=== PATIENT | male | born 1960 | race Caucasian/White ===

== ENCOUNTER → 2017-01-09 | Outpatient (CLI) | payer BC ==
--- NOTE | 2017-01-11 08:06 | ECHOCARDIOGRAPHY REPORT ---
PROCEDURE PHYSICIAN: BELINDA ESPINAL DATE OF PROCEDURE: 01/09/2017 TWO DIMENSIONAL ECHOCARDIOGRAM REPORT PRIMARY PHYSICIAN: OTHER PHYSICIAN: REFERRING PHYSICIAN: Dr. Julia Howard ORDERING PHYSICIAN: INDICATION FOR THE PROCEDURE: Pulmonary hypertension. MEASUREMENTS DERIVED VALUES LV DIAMETER (LAX) NORMALS NORMALS Diastolic 5.1 (3.6-5.2) Eject. Fract. 60% (60%+/-6%) Systolic (2.3-3.9) Diastolic Vol. % Shortening (0.22-0.42) Systolic Vol. Aortic Root IVS THICKNESS Diastolic 1.2 (0.6-1.1) LVPW THICKNESS Diastolic 1.2 (0.6-1.1) LA DIAMETER Systolic 4.1 (2.1-3.7) FINDINGS: 1. Technical quality is good. 2. The left ventricle is normal in size with mild left ventricular hypertrophy noted diffusely. Systolic function appeared to be normal. Estimated ejection fraction 60%. Diastolic dysfunction is suggested by Doppler. 3. The left atrium is in the upper normal limit in size. No clot or thrombus were seen within the left atrium. 4. The right atrium and right ventricle are normal in size. No clot or thrombus were seen within the right side. 5. Mitral valve is normal in morphology with mild mitral regurgitation noted by color Doppler flow. No mitral valve prolapse. No mitral valve stenosis. Doppler across the mitral valve showed equalization of E and A, which is suggestive of diastolic dysfunction. 6. Aortic valve is trileaflet with normal opening and closing pattern. No significant aortic stenosis or regurgitation was noted. 7. Tricuspid valve is normal in morphology with mild tricuspid regurgitation noted by color Doppler flow. Doppler across tricuspid valve estimated pulmonary artery pressure of 22+ right atrial pressure. 8. Pulmonic valve is functioning normally. 9. No pericardial effusion. IN CONCLUSION: 1. Mild left ventricular hypertrophy noted diffusely with normal systolic function. Estimated ejection fraction 60%. Diastolic dysfunction is suggested by Doppler. 2. Mild mitral and tricuspid regurgitation. 3. Estimated pulmonary artery pressure of 30 mmHg. Job ID: [id number] Dictated Date: 01/10/2017 15:49:28 [employer] Date: 01/11/2017 08:03:43 / mack
== END ==
LOC: CARD 12:53
PROVIDERS: ATTEND Family Medicine
DX: I27.2 Other secondary pulmonary hypertension (principal)
CPT/HCPCS: 93306

== ENCOUNTER 2018-03-08 16:19 | Outpatient (CLI) | payer BC | END 2018-03-08 16:38 | disposition home or self-care (01) | LOC: SLEEP 16:19 | PROVIDERS: ATTEND Internal Medicine | DX: G47.33 Obstructive sleep apnea (adult) (pediatric) (principal); R06.83 Snoring; I10 Essential (primary) hypertension ==

== ENCOUNTER → 2018-03-29 | Outpatient (CLI) | payer BC ==
--- NOTE | 2018-03-29 16:30 | Diagnostic Imaging Report ---
CLINICAL INDICATION: Patient had a colonoscopy this morning and is unable to release any air. Patient is in a lot of pain. EXAM: X-ray of the abdomen, upright views only. COMPARISON: None. FINDINGS: There are dilated loops of air- and fluid-filled colon seen from the cecum all the way to the distal descending colon. The most dilated portion of the colon measures 7.7 cm, and this involves the right colon. There appears to be minimal air overlying the rectosigmoid region. There is air-fluid level seen in the right colon and transverse colon region. There is no significant air-filled small bowel. There is no intra-abdominal free air. There are hypertrophic spurs seen throughout the spine and both hips. Sternotomy wires are seen. IMPRESSION: 1: There are dilated loops of colon seen from the distal descending colon to the cecum with a few air-fluid levels. There appears to be minimal air within the rectosigmoid region. These findings most likely represent post-procedure colonic ileus. Colonic obstruction is suspected to be less likely and would have been known from the colonoscopy evaluation. 2: There is no evidence of free air. Results of this report were discussed with Dr. Rodney Armendariz via the telephone on 03/29/2018 at 1620 hours. Dictated by: Dictated on workstation # [id number]
== END ==
LOC: RAD 15:56
PROVIDERS: ATTEND Internal Medicine Gastroenterology
DX: R10.9 Unspecified abdominal pain (principal)
CPT/HCPCS: 74018

== ENCOUNTER 2018-03-31 19:55 | Outpatient (CLI) | payer BC | END 2018-04-01 05:00 | disposition home or self-care (01) | LOC: SLEEP 19:55 | PROVIDERS: ATTEND Nurse Practitioner | DX: G47.33 Obstructive sleep apnea (adult) (pediatric) (principal) | CPT/HCPCS: 95811 ==

== ENCOUNTER 2019-02-10 21:00 | Observation (INO) | payer BC ==
[2019-02-10] VITALS (11 sets, daily range): BP systolic 102–140; BP diastolic 63–84
[~2019-02-10] VITALS: Ht 177.8 cm; Wt 145.1 kg
--- OUTSIDE RECORDS SUMMARY | 2019-02-10 21:05 | XMS REPORT ---
Author Author ERICA OREILLY Organization [facility] Address [address] [place] [address] Care Team Providers Care Paper Control Clerk Name Role Phone OREILLYERICA Samson Unavailable PROBLEMS Unknown Problems ALLERGIES No Known Allergies SOCIAL HISTORY Never Assessed PLAN OF CARE Activity Details Follow Up prn Reason: VITAL SIGNS Height 70 in 2016-12-24 Weight 314.4 lbs 2016-12-24 Temperature 97.8 degrees Fahrenheit 2016-12-24 Heart Rate 88 bpm 2016-12-24 Respiratory Rate 20 2016-12-24 BMI 45.11 kg/m2 2016-12-24 Blood pressure systolic 130 mmHg 2016-12-24 Blood pressure diastolic 82 mmHg 2016-12-24 MEDICATIONS Medication Instructions Dosage Frequency Start Date End Date Duration Status Tessalon Perles 100 mg Orally Three times a day 1 capsule as needed 8h Dec, Jan, 14 days Active Multi Vitamin Mens - Orally Once a day 1 tablet 24h Active Levothyroxine Sodium 25 MCG Orally Once a day 1 tablet on an empty stomach in the morning 24h Active ProAir HFA 108 (90 Base) MCG/ACT Inhalation every 4 hrs 2 puffs as needed 4h Dec, 30 days Active PredniSONE 20 mg Orally Once a day 4 tabs x 4 days, 3 tabs x 4 days, 2 tabs x 4 days, then 1 tab x 4 days. 24h Dec, Jan, 16 days Active RESULTS No Results PROCEDURES Procedure Date Ordered Result Body Site CHEST X-RAY Dec 24, 2016 IMMUNIZATIONS No Known Immunizations MEDICAL (GENERAL) HISTORY Type Description Date Surgical History open heart surgery...hole in valve 1975 Surgical History bilateral orthoscopic sx on knees Surgical History tonwsils and adenoids Hospitalization History post surgeries
[2019-02-10 21:15] LABS: BASOPHILS % (AUTO) 0 % (0-10); EOSINOPHILS # (AUTO) 0.3 10^3/uL (0.0-0.3); EOSINOPHILS % (AUTO) 3 % (0-10); HEMATOCRIT 43 % (40-54); HEMOGLOBIN 15.4 G/DL (13.3-17.7); LYMPHOCYTES # (AUTO) 3.8 X 10^3 (1.0-4.0); LYMPHOCYTES % (AUTO) 37 % (12-44); MEAN CORPUSCULAR HEMOGLOBIN 32 PG (25-34); MEAN CORPUSCULAR HGB CONC 36 G/DL (32-36); MEAN CORPUSCULAR VOLUME 89 FL (80-99); MEAN PLATELET VOLUME 10.5 FL (7.4-10.4); MONOCYTES # (AUTO) 0.9 X 10^3 (0.0-1.0); MONOCYTES % (AUTO) 9 % (0-12); NEUTROPHILS # (AUTO) 5.3 X 10^3 (1.8-7.8); NEUTROPHILS % (AUTO) 51 % (42-75); PLATELET COUNT 211 10^3/uL (130-400); RED CELL DISTRIBUTION WIDTH 13.4 % (10.0-14.5); WHITE BLOOD COUNT 10.4 10^3/uL (4.3-11.0)
[2019-02-10] MEDS ORDERED: ASPIRIN 81 MG CHEW (CHILDREN'S ASA) PO ONE (21:15)
--- NOTE | 2019-02-10 21:29 | ED Chest Pain ---
General Stated Complaint: CHEST PAIN Source: patient History of Present Illness Date Seen by Provider: Feb 10, 2019 Time Seen by Provider: 21:02 Initial Comments PT ARRIVES VIA POV FROM HOME C/O CHEST PAIN SINCE WAKING THIS AM, AND HAS BEEN CONSTANT ALL DAY TODAY STATES HE DID MOVE 2 COUCHES TODAY, BUT WAS ALREADY HAVING CHEST PAIN BEFORE THAT ACTIVITY STATES NOTHING WORSENS OR IMPROVES PAIN NO RADIATION OF PAIN PT STATES HE IS ALWAYS SHORT OF BREATH, BUT IS WORSE TODAY ALSO STATES HE HAS BEEN COUGHING MORE TODAY, AND HAS FELT HOT TODAY AND HAS BEEN SWEATING TODAY NO NAUSEA NO SWELLING IN LEGS/ FEET TODAY STATES HEART FELT LIKE IT WAS BEATING HARD STATES HE HAS HAD SOME MILDER OCCASIONAL CHEST PAIN BUT HAS NEVER SOUGHT CARE. PT DOES ADMIT TO ALCOHOL USE AND DID DRINK HEAVILY LAST PM NO HISTORY OF SMOKING BUT DOES CHEW TOBACCO PT STATES IN 1975 HE HAD OPEN HEART SURGERY "HAD A HOLE IN THE VALVE" AND "PATCHED IT" STATES HE HAS NOT SEEN A PCU RN SINCE THEN THINKS HE HAD A STRESS TEST MANY YEARS AGO THINKS HE HAD A CARDIAC CATH IN 1974 BEFORE HIS HEART SURGERY, BUT NONE SINCE DOES NOT THINK HE HAS HAD AN EKG IN YEARS PT THINKS HE IS TAKING A BLOOD THINNER, BUT THINKS HE JUST RECENTLY WAS STARTED ON IT, DOES NOT KNOW NAME OR WHY HE WAS PRESCRIBED IT. PCP: DR. RICKS Allergies and Home Medications Allergies Coded Allergies: No Known Drug Allergies (Unverified , 02/10/19) Review of Systems Review of Systems Constitutional: see HPI, diaphoresis; No dizziness EENTM: No Symptoms Reported Respiratory: See HPI, Cough, Shortness of Air, SOA With Exertion, SOA at Rest Cardiovascular: See HPI, Chest Pain; Denies Lightheadedness; Palpitations; Denies Syncope; Other (HAS HISTORY OF EDEMA, BUT NOT TODAY--TAKES DIURETIC ) Gastrointestinal: No Symptoms Reported; Denies Abdominal Pain, Denies Nausea, Denies Vomiting Genitourinary: No Symptoms Reported Musculoskeletal: no symptoms reported; No back pain Skin: no symptoms reported Psychiatric/Neurological: No Symptoms Reported Endocrine: No Symptoms Reported Hematologic/Lymphatic: No Symptoms Reported Past Gwcrhid-Tnrosf-Zspqep Hx Patient Social History Alcohol Use: Regular Use (HEAVY AT TIMES) Recreational Drug Use: No Smoking Status: Never a Smoker Type Used: Smokeless Tobacco (CHEWS DAILY) Past Medical History Surgeries: Yes ("OPEN HEART SURGERY FOR HOLE IN VALVE" IN 1975, PER PT 02/10/19 ; BILATERAL KNEE SCOPES; "JAW BONE SCRAPED: ) Adenoidectomy, Cardiac, Orthopedic, Tonsillectomy Respiratory: Yes Sleep Apnea Cardiac: Yes Chronic Edema/Swelling, Valvular Heart Disease Neurological: No Genitourinary: No Gastrointestinal: No Musculoskeletal: Yes (BILATERAL KNEE SCOPES) Arthritis Endocrine: Yes (OBESITY) Hypothyroidsim HEENT: No Cancer: No Psychosocial: No Integumentary: No Blood Disorders: No Physical Exam Vital Signs Capillary Refill : Height, Weight, BMI Height: '" Weight: lbs. oz. kg; BMI Method: General Appearance: Mild Distress (MILDLY DYSPNEIC), Obese HEENT: PERRL/EOMI Neck: Full Range of Motion, Normal Inspection, Non Tender, Supple; No Carotid Bruit, No JVD Respiratory: Normal Breath Sounds, Other (MILDLY DYSPNEIC ) Cardiovascular: Regular Rate, Rhythm (RATE 100), No JVD, Normal Peripheral Pulses, Systolic Murmur (FAINT), Other (TRACE EDEMA BILATERALLY WITH CHRONIC VENOUS STASIS CHANGES BILATERALLY) Gastrointestinal: Non Tender, Soft Extremity: Normal Range of Motion, Non Tender, No Calf Tenderness, Pedal Edema (TRACE BILATERALLY) Neurologic/Psychiatric: Alert, Oriented x3, No Motor/Sensory Deficits, Normal Mood/Affect, 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 Norm as Tested Skin: Normal Color, Warm/Dry; No Rash Progress/Results/Core Measures Results/Orders Lab Results Laboratory Tests Test 02/10/19 21:05 Range/Units White Blood Count 10.4 4.3-11.0 10^3/uL Red Blood Count 4.83 4.35-5.85 10^6/uL Hemoglobin 15.4 13.3-17.7 G/DL Hematocrit 43 40-54 % Mean Corpuscular Volume 89 80-99 FL Mean Corpuscular Hemoglobin 32 25-34 PG Mean Corpuscular Hemoglobin Concent 36 32-36 G/DL Red Cell Distribution Width 13.4 10.0-14.5 % Platelet Count 211 130-400 10^3/uL Mean Platelet Volume 10.5 H 7.4-10.4 FL Neutrophils (%) (Auto) 51 42-75 % Lymphocytes (%) (Auto) 37 12-44 % Monocytes (%) (Auto) 9 0-12 % Eosinophils (%) (Auto) 3 0-10 % Basophils (%) (Auto) 0 0-10 % Neutrophils # (Auto) 5.3 1.8-7.8 X 10^3 Lymphocytes # (Auto) 3.8 1.0-4.0 X 10^3 Monocytes # (Auto) 0.9 0.0-1.0 X 10^3 Eosinophils # (Auto) 0.3 0.0-0.3 10^3/uL Basophils # (Auto) 0.0 0.0-0.1 10^3/uL My Orders Orders - DOROTHY CORDOVA DO Cbc With Automated Diff (02/10/19 21:02) Magnesium (02/10/19 21:02) Chest 1 View, Ap/Pa Only (02/10/19 21:02) Ekg Tracing (02/10/19 21:02) Cardiac Profile 1 (02/10/19 21:02) Comprehensive Metabolic Panel (02/10/19 21:02) Myoglobin Serum (02/10/19 21:02) Protime With Inr (02/10/19 21:02) Partial Thromboplastin Time (02/10/19 21:02) O2 (02/10/19 21:02) Monitor-Rhythm Ecg Trace Only (02/10/19 21:02) Lipid Panel (02/11/19 06:00) Saline Lock/Iv-Start (02/10/19 21:02) Creatine Kinase (02/10/19 21:02) Creatine Kinase Mb (02/10/19 21:02) Lipase (02/10/19 21:02) Amylase (02/10/19 21:02) BNP (02/10/19 21:02) Aspirin Chewable Tablet (Baby Aspirin Ch (02/10/19 21:15) Nitroglycerin 0.4 Mg Btl 25's (Nitrostat (02/10/19 21:15) Initial ECG Impression Date: Feb 10, 2019 Initial ECG Impression Time: 21:04 Initial ECG Rate: 100 Initial ECG Rhythm: Normal Sinus Initial ECG Comparisson: No Previous ECG Available Departure Impression Primary Impression: Chest pain Departure-Patient Inst. Referrals: DENNIS RICKS DO (PCP/Family) Primary Care Physician DOROTHY CORDOVA DO Feb 10, 2019 21:29
[2019-02-10] MEDS ORDERED: PANTOPRAZOLE 40 MG (PROTONIX) VIAL IV ONE (21:30)
[2019-02-10] MEDS: NITROGLYCERIN 0.4 MG SL TABS BTL 25'S SL PRN ×3 (21:31→21:41)
[2019-02-10 21:34] LABS: INR 0.9 (0.8-1.4); PROTHROMBIN TIME PATIENT 12.8 SEC (12.2-14.7)
[2019-02-10 21:36] LABS: ALANINE AMINOTRANSFERASE 49 U/L (0-55); ALBUMIN 4.3 GM/DL (3.2-4.5); ALKALINE PHOSPHATASE 75 U/L (40-136); AMYLASE 25 U/L (25-125); BILIRUBIN,TOTAL 0.4 MG/DL (0.1-1.0); BUN/CREATININE RATIO 15; CALCIUM 9.7 MG/DL (8.5-10.1); CARBON DIOXIDE 21 MMOL/L (21-32); CHLORIDE 108 MMOL/L (98-107); CREATINE KINASE 241 U/L (30-200); GFR ESTIMATED > 60; GLUCOSE 110 MG/DL (70-105); LIPASE 29 U/L (8-78); MAGNESIUM 2.5 MG/DL (1.8-2.4); POTASSIUM 4.1 MMOL/L (3.6-5.0); SODIUM 141 MMOL/L (135-145); TOTAL PROTEIN 7.1 GM/DL (6.4-8.2)
[2019-02-10] MEDS ORDERED: NS (IVPB) 250 ML ONE (21:40)
--- NOTE | 2019-02-10 21:47 | Diagnostic Imaging Report ---
INDICATION: Chest pain. FINDINGS: Upright view of the chest demonstrates sternotomy changes. Heart size and vascularity are normal. The lungs are clear. There are no pleural effusions. IMPRESSION: There are no acute findings. Dictated by: Dictated on workstation # [id number]
[2019-02-10] MEDS ORDERED: morphine INJ 10 MG/ML 1ML (SYR OR VIAL) IVP ONE (22:15)
[2019-02-10] MEDS ORDERED: IOHEXOL 350 MG/ML 150 ML (OMNIPAQUE 350) VIAL IV ONE (23:00)
[2019-02-10] MEDS ORDERED: meTOproloL SUCCINATE 50 MG (TOPROL XL) TAB PO SCH (23:45)
[2019-02-10] MEDS ORDERED: ENOXAPARIN 100 MG/1 ML (LOVENOX) SYR SC ONE (23:45)
[2019-02-10] MEDS ORDERED: ENOXAPARIN 40 MG/0.4 ML (LOVENOX) SYR SC ONE (23:45)
[2019-02-11] VITALS (19 sets, daily range): BP systolic 112–151; BP diastolic 65–98
--- NOTE | 2019-02-11 00:31 | NUR ---
MARILOU TEMPLETON admitted to room CU12-1, with an admitting diagnosis of chest pain, on 02/11/19 from ED via wheelchair, accompanied by staff.MARILOU TEMPLETON introduced to surroundings, call light, bed controls, phone, TV, temperature control, lights, meal times, smoking policy, visitor policy, side rail policy, bathrooms and showers. Patient Rights given to patient in the handbook. MARILOU TEMPLETON verbalizes understanding that [facility] is not responsible for the loss or damage to any personal effects or valuables that are kept in the patients possession during their hospitalization. The following Patient Care Plans were discussed with the patient: Discharge Planning. MARILOU TEMPLETON verbalizes understanding of Interdisciplinary Patient Education. Patient and/or family were informed about the Rapid Response Team and its purpose.
[2019-02-11] MEDS: NITROGLYCERIN 0.4 MG SL TABS BTL 25'S SL PRN ×2 (01:03→01:13)
--- NOTE | 2019-02-11 01:03 | NUR ---
Patient c/o chest pain, mid sternal. Pain rated at 1 with increase to 5 immediately. 1 0.4mg nitro sl administered at this time.
--- NOTE | 2019-02-11 01:05 | NUR ---
Post 1 nitro admin pain gone and rated at a 0.
--- NOTE | 2019-02-11 01:13 | NUR ---
Patient c/o increasing pain at this time. Described as pain starting and increasing in rapid increments. "Pain mid chest, rated at 3, immediate increase to 5 then to 8." EKG done, one nitro sl administered. Pain immediate decreased to 3. Patient has no change in EKG. No change in VS. Oxygen applied @ 2l/nc.
[2019-02-11] MEDS ORDERED: morphine INJ 4 MG/ML 1 ML (VIAL/SYRINGE) IV PRN (01:45)
[2019-02-11] MEDS ORDERED: NITROGLYCERIN 0.4 MG SL TABS BTL 25'S SL PRN (01:45)
[2019-02-11 03:50] LABS: BASOPHILS % (AUTO) 0 % (0-10); EOSINOPHILS # (AUTO) 0.3 10^3/uL (0.0-0.3); EOSINOPHILS % (AUTO) 3 % (0-10); HEMATOCRIT 43 % (40-54); HEMOGLOBIN 14.8 G/DL (13.3-17.7); LYMPHOCYTES # (AUTO) 3.2 X 10^3 (1.0-4.0); LYMPHOCYTES % (AUTO) 36 % (12-44); MEAN CORPUSCULAR HEMOGLOBIN 31 PG (25-34); MEAN CORPUSCULAR HGB CONC 35 G/DL (32-36); MEAN CORPUSCULAR VOLUME 90 FL (80-99); MEAN PLATELET VOLUME 10.6 FL (7.4-10.4); MONOCYTES # (AUTO) 0.8 X 10^3 (0.0-1.0); MONOCYTES % (AUTO) 9 % (0-12); NEUTROPHILS # (AUTO) 4.7 X 10^3 (1.8-7.8); NEUTROPHILS % (AUTO) 52 % (42-75); PLATELET COUNT 185 10^3/uL (130-400); RED CELL DISTRIBUTION WIDTH 13.6 % (10.0-14.5)
[2019-02-11 04:12] LABS: ALANINE AMINOTRANSFERASE 43 U/L (0-55); ALKALINE PHOSPHATASE 59 U/L (40-136); BILIRUBIN,TOTAL 0.5 MG/DL (0.1-1.0); BUN/CREATININE RATIO 16; CALCIUM 9.3 MG/DL (8.5-10.1); CARBON DIOXIDE 22 MMOL/L (21-32); CHLORIDE 108 MMOL/L (98-107); CREATININE SERUM 0.91 MG/DL (0.60-1.30); GFR ESTIMATED > 60; GLUCOSE 97 MG/DL (70-105); POTASSIUM 4.2 MMOL/L (3.6-5.0); SODIUM 139 MMOL/L (135-145); TOTAL PROTEIN 6.4 GM/DL (6.4-8.2)
[2019-02-11 04:18] LABS: CARDIAC PROFILE 2 < 0.028 NG/ML (<0.028)
[2019-02-11 04:24] LABS: CHOLESTEROL 160 MG/DL (< 200); HDL CHOLESTEROL 28 MG/DL (40-60); TRIGLYCERIDES 175 MG/DL (<150); VLDL CHOLESTEROL 35 MG/DL (5-40)
--- NOTE | 2019-02-11 08:55 | Consultation-Cardiology ---
HPI-Cardiology Cardiology Consultation: Date of Consultation 02/11/19 Time Seen by a Provider: 08:30 Date of Admission 02-10-19 Attending Physician Ros Mai DO Admitting Physician Cuauhtemoc Hinojosa DO Consulting Physician Umu Serra MD HPI: Chief Complaint: Chest pain Mr. Esteban is a 58 year old male who has been admitted to ICU 12 from the ED. He reports yesterday he woke up and began to have localized, approx finger breadth wide, dull aching chest pain which he would occasionally have sharp stabbing pain. He reports it as mod. He states it did not radiate. No other assoc symptoms. He reports he went and moved 2 couches yesterday, which did not cause any change in his discomfort. He states last night he had an episode where he broke out into a sweat which caused him concern so he came to the ED. He denies any n/v/d. He denies any LE swelling since he has been on diuretic tx. He reports he takes an ASA daily and "blood thinner" to which he does not know the name; he reports he does not have any frequent blood testing. He is unsure of why he was started on the "blood thinner" approx 2 years ago. He states he does drink alcohol heavily at times, and had drank quite a bit on Monday evening. He reports he does use chew tobacco. He is currently not reporting any chest pain and wants to go home. Review of Systems-Cardiology Review of Systems Constitutional: No chills, No fever, No malaise Eyes: No vision change Ears/Nose/Throat: No epistaxis, No recent hearing loss Respiratory: As described under HPI Gastrointestinal: No constipation, No diarrhea, No nausea, No vomiting Genitourinary: No dysuria Musculoskeletal: no symptoms reported Skin: No rash, No ulcerations Psychiatric/Neurological: No seizure, No focal weakness, No syncope Hematologic: No bleeding abnormalities KGS-Gtnvuy-Cglhcm Hx Patient Social History Alcohol Use: Regular Use (HEAVY AT TIMES) Recreational Drug Use: No Smoking Status: Never a Smoker Type Used: Smokeless Tobacco (CHEWS DAILY) Recent Foreign Travel: No Recent Infectious Disease Expo: No Hospitalization with Isolation: Denies Past Medical History PMH As described under Assessment. Family Medical History Family Medical History: He reports his mother had an WI in her 70's. No other family h/o CAD or SCD. Family History: FH: brain tumor 19 MOTHER, , Onset:60 years & older FH: prostate cancer 19 FATHER, Onset:60 years & older Allergies and Home Medications Allergies Coded Allergies: No Known Drug Allergies (Unverified , 02/10/19) Home Medications Amlodipine Besylate 5 Mg Tablet, 5 MG PO DAILY, (Reported) Aspirin 81 Mg Tab.chew, 81 MG PO DAILY, (Reported) Furosemide 20 Mg Tablet, 20 MG PO DAILY, (Reported) Glucosamine Sulfate 2Kcl 1,000 Mg Tablet, 2 TAB PO DAILY, (Reported) Levothyroxine Sodium 25 Mcg Tablet, 25 MCG PO DAILY, (Reported) Multivitamin/Iron/Folic Acid 1 Each Tablet, 1 TAB PO DAILY, (Reported) Gilbert 3 Polyunsat Fatty Acids 1,000 Mg Cap, 3,000 MG PO DAILY, (Reported) Potassium Chloride 10 Meq Tablet.er, 10 MEQ PO DAILY, (Reported) Physical Exam-Cardiology Physical Exam Vital Signs/I&O Capillary Refill : Less Than 3 Seconds Constitutional: AAO x 3, well-developed, well-nourished HEENT: PERRL, hearing is well preserved Neck: No carotid bruit; carotid pulses are 2 + bilaterally Respiratory: No accessory muscle use, No respiratory distress; chest expansion is symmetric, lungs clear to auscultation Cardiovascular: regular rate-rhythm; No JVD; S1 and S2 Gastrointestinal: No tender; soft, round, audible bowel sounds Rectal: deferred Extremities: no lower extremity edema bilateral Neurologic/Psychiatric: grossly intact, power is 5/5 both on sides Skin: No rash, No ulcerations Data Review Labs Radiology NAME: MARILOU ESTEBAN [facility] REC#: [id number] PT STATUS: REG ER : 1960 PHYSICIAN: DOROTHY CORDOVA DO ADMIT DATE: 02/10/19/ER Signed Date of Exam: 02/10/19 CHEST 1 VIEW, AP/PA ONLY INDICATION: Chest pain. FINDINGS: Upright view of the chest demonstrates sternotomy changes. Heart size and vascularity are normal. The lungs are clear. There are no pleural effusions. IMPRESSION: There are no acute findings. Dictated by: Dictated on workstation # [id number] Dict: 02/10/192137 Trans: 02/10/192202 Interpreted by: TEE HALL MD Electronically signed by: TEE HALL MD 02/10/192202 ECG Impression ECG Initial ECG Rhythm: Normal Sinus A/P-Cardiology Assessment/Admission Diagnosis Non-radiating chest pain of undetermined etiology H/O open heart surgery at age 16 at [facility] in [place] to repair a heart valve - exact details unknown Sleep apnea - CPAP tx - follows with Dr. Macias Echo of 01-09-[address] Walton showed . Mild left ventricular hypertrophy noted diffusely with normal systolic function. Estimated ejection fraction 60%. Diastolic dysfunction is suggested by Doppler. Mild mitral and tricuspid regurgitation. Estimated pulmonary artery pressure of 30 mmHg. Chew tobacco use - cessation advised Reports h/o "blood thinner" - medication and and reason unknown HTN HLD Elevated BMI of approx 46 H/O bilat knee replacements Discussion and Recomendations Chest pain of undetermined etiology - no evidence of ACS - no further c/o CP D/t c/o, h/o and risk factors advise evaluation of coronary perfusion with an MPI Echocardiogram today to eval structure and LVEF Awaiting CTA of the chest results Awaiting clarification of home medications before resumption Monitor lab Advised immediate and complete tobacco cessation Clinical Quality Measures AMI/AHF: ASA po Prior to arrival: No DVT/VTE Risk/Contraindication: Risk Factor Score Per Nursin RFS Level Per Nursing on Admit: 2=Moderate BUBBA BAILEY Feb 11, 2019 08:55
--- NOTE | 2019-02-11 08:58 | Diagnostic Imaging Report ---
PROCEDURE: CT angiography of the chest with contrast. TECHNIQUE: Multiple contiguous axial images were obtained through the chest after uneventful bolus administration of intravenous contrast. 2D reconstructed CTA MIP acquisitions were also performed. Auto Exposure Controls were utilized during the CT exam to meet ALARA standards for radiation dose reduction. DATE: February 102018. COMPARISON: Chest radiograph February 10, 2019. INDICATION: 58-year-old male, chest pain. FINDINGS: There is no identified pulmonary nodule or lung mass. There is no focal airspace consolidation. There is no pneumothorax. There is no pleural effusion. The central airways are patent. There is no identified pulmonary embolus. The main pulmonary artery is normal in caliber. The heart is not enlarged. There is no pericardial effusion. There is no identified abnormally enlarged mediastinal, hilar, or axillary lymph node which meets CT size criteria for adenopathy. The imaged portions of the upper abdomen are unremarkable in appearance. There are degenerative changes of the spine. There are median sternotomy wires. There is no identified acute bony abnormality. IMPRESSION: CT CHEST. 1. No identified pulmonary embolus or other acute cardiopulmonary abnormality. Dictated by: Dictated on workstation # [id number]
[2019-02-11] MEDS ORDERED: ASPIRIN E.C. 81 MG (ECOTRIN) TAB PO SCH (09:00)
--- NOTE | 2019-02-11 11:23 | History & Physical-Hospitalist ---
History of Present Illness HPI/Chief Complaint The patient is a 58-year-old white male who presented to the emergency room last evening with complaint of left-sided chest pain. He reported that it began in the morning and persisted through the day. It did not related to exercise or eating. He had not previously experienced this. It did not radiate. He reports that he had a surgery in the 1970s and had a hole in the heart valve repaired. He is unable to state which valve. He states this was not a valve replacement. He states that this was not a a septal defect. He has not previously had chest pain. He reports that more recently he was placed on a blood thinner but is unable to state what this might be. Source: patient Date Seen 02/11/19 Time Seen by a Provider: 11:18 Attending Physician Ros Mai William J DO Referring Physician Date of Admission Feb 11, 2019 at 00:01 Home Medications & Allergies Home Medications Reviewed patient Home Medication Reconciliation performed by pharmacy medication reconciliations chemical processing technician and/or nursing. Patients Allergies have been reviewed. Allergies Allergies Coded Allergies No Known Drug Allergies (Unverified02/10/19) Past Dicedmt-Ccemyc-Osaedy Hx Past Med/Social Hx: Reviewed Nursing Past Med/Soc Hx Patient Social History Alcohol Use: Regular Use (HEAVY AT TIMES) Recreational Drug Use: No Smoking Status: Never a Smoker Type Used: Smokeless Tobacco (CHEWS DAILY) Recent Foreign Travel: No Contact w/other who traveled: No Recent Infectious Disease Expo: No Past Medical History Surgeries: Adenoidectomy, Cardiac, Orthopedic, Tonsillectomy Cardiac: Chronic Edema/Swelling, Valvular Heart Disease Musculoskeletal: Arthritis Endocrine: Hypothyroidsim History of Blood Disorders: No Family History FH: brain tumor 19 MOTHER, , Onset:60 years & older FH: prostate cancer 19 FATHER, Onset:60 years & older Review of Systems Constitutional: see HPI EENTM: no symptoms reported Respiratory: no symptoms reported Cardiovascular: chest pain Gastrointestinal: no symptoms reported Genitourinary: no symptoms reported Musculoskeletal: no symptoms reported Skin: no symptoms reported Psychiatric/Neurological: No Symptoms Reported Physical Exam Physical Exam Vital Signs Vital Signs - First Documented 02/10/19 02/11/19 21:04 00:34 Temp 98.9 Pulse 103 Resp 18 B/P (MAP) 140/85 (103) Pulse Ox 100 O2 Delivery Room Air O2 Flow Rate 2.00 Capillary Refill : Less Than 3 Seconds Height, Weight, BMI Height: 5'10.00" Weight: 320lbs. 0.0oz. 145.435630sn; 45.9 BMI Method:Stated General Appearance: No Apparent Distress, WD/WN HEENT: Normal ENT Inspection Neck: Normal Inspection Respiratory: Chest Non Tender, Lungs Clear, Normal Breath Sounds, No Accessory Muscle Use, No Respiratory Distress, Other (barrel chested) Cardiovascular: Regular Rate, Rhythm, No Edema, No Gallop, No JVD, No Murmur, Other (midline sternotomy scar) Gastrointestinal: Normal Bowel Sounds, Other (obese) Extremity: Normal Capillary Refill, Normal Inspection, Normal Range of Motion Neurologic/Psychiatric: Alert, Oriented x3, No Motor/Sensory Deficits Skin: Normal Color, Cool Lymphatic: No Adenopathy Results Results/Procedures Labs Laboratory Tests 02/10/19 21:05 02/11/19 03:05 02/11/19 03:10 Patient resulted labs reviewed. Assessment/Plan Admission Diagnosis Chest pain Admission Status: Observation Assessment and Plan Patient has been cleared by cardiology and will be discharged to have an outpatient cardiac scan Clinical Quality Measures AMI/AHF: ASA po Prior to arrival: No DVT/VTE Risk/Contraindication: Risk Factor Score Per Nursin RFS Level Per Nursing on Admit: 2=Moderate KAREY VIERA MD Feb 11, 2019 11:23
--- NOTE | 2019-02-11 11:25 | NUR ---
Pt recieved 10 ml of definity solution during echocardiography procedure. Pt tolerated the procedure well.
--- NOTE | 2019-02-11 11:31 | History & Physical-Hospitalist ---
History of Present Illness HPI/Chief Complaint The patient is a 58-year-old white male who presented to the emergency room last evening with complaint of left-sided chest pain. He reported that it began in the morning and persisted through the day. It did not related to exercise or eating. He had not previously experienced this. It did not radiate. He reports that he had a surgery in the 1970s and had a hole in the heart valve repaired. He is unable to state which valve. He states this was not a valve replacement. He states that this was not a a septal defect. He has not previously had chest pain. He reports that more recently he was placed on a blood thinner but is unable to state what this might be. Date Seen 02/11/19 Attending Physician Ros Mai DO PCP Cuauhtemoc Hinojosa DO Referring Physician Date of Admission Feb 11, 2019 at 00:01 Home Medications & Allergies Home Medications Reviewed patient Home Medication Reconciliation performed by pharmacy medication reconciliations donor center technician and/or nursing. Patients Allergies have been reviewed. Allergies Allergies Coded Allergies No Known Drug Allergies (Unverified02/10/19) Past Qlkhbwa-Eusals-Tluhdy Hx Past Med/Social Hx: Reviewed Nursing Past Med/Soc Hx Patient Social History Alcohol Use: Regular Use (HEAVY AT TIMES) Recreational Drug Use: No Smoking Status: Never a Smoker Type Used: Smokeless Tobacco (CHEWS DAILY) Recent Foreign Travel: No Contact w/other who traveled: No Recent Infectious Disease Expo: No Past Medical History Surgeries: Adenoidectomy, Cardiac, Orthopedic, Tonsillectomy Cardiac: Chronic Edema/Swelling, Valvular Heart Disease Musculoskeletal: Arthritis Endocrine: Hypothyroidsim History of Blood Disorders: No Family History FH: brain tumor 19 MOTHER, , Onset:60 years & older FH: prostate cancer 19 FATHER, Onset:60 years & older Review of Systems Constitutional: see HPI EENTM: no symptoms reported Respiratory: no symptoms reported Cardiovascular: chest pain Gastrointestinal: no symptoms reported, other (obese) Genitourinary: no symptoms reported Musculoskeletal: no symptoms reported Skin: no symptoms reported Psychiatric/Neurological: No Symptoms Reported Physical Exam Physical Exam Vital Signs Vital Signs - First Documented 02/10/19 02/11/19 21:04 00:34 Temp 98.9 Pulse 103 Resp 18 B/P (MAP) 140/85 (103) Pulse Ox 100 O2 Delivery Room Air O2 Flow Rate 2.00 Capillary Refill : Less Than 3 Seconds Height, Weight, BMI Height: 5'10.00" Weight: 320lbs. 0.0oz. [id number]; 45.9 BMI Method:Stated Results Results/Procedures Labs Laboratory Tests 02/10/19 21:05 02/11/19 03:05 02/11/19 03:10 Patient resulted labs reviewed. Assessment/Plan Admission Diagnosis Chest pain 2.morbid obesity Clinical Quality Measures AMI/AHF: ASA po Prior to arrival: No DVT/VTE Risk/Contraindication: Risk Factor Score Per Nursin RFS Level Per Nursing on Admit: 2=Moderate KAREY VIERA MD Feb 11, 2019 11:31
--- NOTE | 2019-02-11 11:40 | Discharge Inst-Simple/Standard ---
Discharge Inst-Standard Patient Instructions/Follow Up Plan of Care/Instructions/FU: Cardiac scan as scheduled. Cardiology follow-up Activity as Tolerated: Yes Discharge Diet: No Restrictions KAREY VIERA MD Feb 11, 2019 11:40
[2019-02-11] MEDS ORDERED: OMG1KC PO (12:12)
[2019-02-11] MEDS ORDERED: AMLO5TAB9 PO (12:12)
[2019-02-11] MEDS ORDERED: LEVO25TA5 PO (12:12)
[2019-02-11] MEDS ORDERED: POTA10TA10 PO (12:12)
[2019-02-11] MEDS ORDERED: ASPI-999 PO (12:12)
[2019-02-11] MEDS ORDERED: MULT-1067 PO (12:12)
[2019-02-11] MEDS ORDERED: FURO20TA4 PO (12:12)
[2019-02-11] MEDS ORDERED: GLUC100016 PO (12:12)
--- NOTE | 2019-02-11 12:13 | NUR ---
WENT OVER THE EXT MED HX WITH THE PATIENT AND HE VERIFIED HOW HE TAKES EACH MEDICATION. HE ALSO LISTED HIS OTC MEDS. OTC: FISH OIL 3 AM GLUCOSAMINE 2 AM CENTRUM DAILY ASPIRIN 81MG CHEW DAILY
--- NOTE | 2019-02-11 13:48 | Consultation-Cardiology ---
HPI-Cardiology Cardiology Consultation: Date of Consultation 02/11/19 Time Seen by a Provider: 09:15 Date of Admission Attending Physician Ros Mai DO Admitting Physician Cuauhtemoc Hinojosa DO Consulting Physician RAFAEL ZUNIGA MD, MA, FACP, FACC, [facility], CCDS HPI: Chief Complaint: CC: Chest pain HPI Mr. Esteban is a 58 year old male who has been admitted to ICU 12 from the ED. He reports yesterday he woke up and began to have localized, approx finger breadth wide, dull aching chest pain which he would occasionally have sharp stabbing pain. He reports it as mod. He states it did not radiate. No other assoc symptoms. He reports he went and moved 2 couches yesterday, which did not cause any change in his discomfort. He states last night he had an episode where he broke out into a sweat which caused him concern so he came to the ED. He denies any n/v/d. He denies any LE swelling since he has been on diuretic tx. He reports he takes an ASA daily and "blood thinner" to which he does not know the name; he reports he does not have any frequent blood testing. He is unsure of why he was started on the "blood thinner" approx 2 years ago. He states he does drink alcohol heavily at times, and had drank quite a bit on Monday evening. He reports he does use chew tobacco. He is currently not reporting any chest pain and wants to go home. Review of Systems-Cardiology Review of Systems Constitutional: No chills, No fever, No malaise Eyes: No vision change Ears/Nose/Throat: No epistaxis, No recent hearing loss Respiratory: As described under HPI Gastrointestinal: No constipation, No diarrhea, No nausea, No vomiting Genitourinary: No dysuria Musculoskeletal: no symptoms reported Skin: No rash, No ulcerations Psychiatric/Neurological: No seizure, No focal weakness, No syncope Hematologic: No bleeding abnormalities HZY-Jipwdg-Ksausg Hx Patient Social History Alcohol Use: Regular Use (HEAVY AT TIMES) Recreational Drug Use: No Smoking Status: Never a Smoker Type Used: Smokeless Tobacco (CHEWS DAILY) Recent Foreign Travel: No Recent Infectious Disease Expo: No Hospitalization with Isolation: Denies Past Medical History PMH As described under Assessment. Family Medical History Family Medical History: He reports his mother had an [place] in her 70's. No other family h/o CAD or SCD. Family History: FH: brain tumor 19 MOTHER, , Onset:60 years & older FH: prostate cancer 19 FATHER, Onset:60 years & older Allergies and Home Medications Allergies Coded Allergies: No Known Drug Allergies (Unverified , 02/10/19) Home Medications Amlodipine Besylate 5 Mg Tablet, 5 MG PO DAILY, (Reported) Aspirin 81 Mg Tab.chew, 81 MG PO DAILY, (Reported) Furosemide 20 Mg Tablet, 20 MG PO DAILY, (Reported) Glucosamine Sulfate 2Kcl 1,000 Mg Tablet, 2 TAB PO DAILY, (Reported) Levothyroxine Sodium 25 Mcg Tablet, 25 MCG PO DAILY, (Reported) Multivitamin/Iron/Folic Acid 1 Each Tablet, 1 TAB PO DAILY, (Reported) [place] 3 Polyunsat Fatty Acids 1,000 Mg Cap, 3,000 MG PO DAILY, (Reported) Potassium Chloride 10 Meq Tablet.er, 10 MEQ PO DAILY, (Reported) Patient Home Medication List Home Medication List Reviewed: Yes Physical Exam-Cardiology Physical Exam Vital Signs/I&O 02/11/19 02/11/19 02/11/19 02/11/19 02:00 02:52 03:00 03:40 Pulse 68 67 B/P (MAP) 118/75 (89) 112/65 (81) Pulse Ox 98 97 O2 Delivery Nasal Cannula Nasal Cannula Nasal Cannula Nasal Cannula O2 Flow Rate 2.00 2.00 2.00 2.00 02/11/19 02/11/19 02/11/19 02/11/19 04:00 05:00 06:00 07:00 Temp 97.6 Pulse 68 72 72 B/P (MAP) 129/83 (98) 142/90 (107) 137/84 (101) Pulse Ox 98 99 97 O2 Delivery Nasal Cannula Nasal Cannula Nasal Cannula O2 Flow Rate 2.00 2.00 2.00 02/11/19 02/11/19 02/11/19 02/11/19 07:00 07:16 08:00 08:00 Pulse 68 68 67 B/P (MAP) 142/88 (106) 127/81 (96) Pulse Ox 97 98 O2 Delivery Nasal Cannula Nasal Cannula Nasal Cannula O2 Flow Rate 2.00 2.00 2.00 02/11/19 02/11/19 02/11/19 02/11/19 09:00 09:00 09:06 10:15 Pulse 66 68 B/P (MAP) 140/78 (98) 131/78 (95) Pulse Ox 96 97 96 O2 Delivery Nasal Cannula Nasal Cannula Nasal Cannula Nasal Cannula O2 Flow Rate 2.00 2.00 2.00 2.00 02/11/19 02/11/19 02/11/19 02/11/19 11:00 12:00 12:00 13:05 Pulse 65 74 70 B/P (MAP) 125/77 (93) 142/83 (102) Pulse Ox 97 96 O2 Delivery Nasal Cannula Nasal Cannula Nasal Cannula O2 Flow Rate 2.00 2.00 2.00 Capillary Refill : Less Than 3 Seconds Constitutional: AAO x 3, well-developed, well-nourished HEENT: PERRL, hearing is well preserved Neck: No carotid bruit; carotid pulses are 2 + bilaterally Respiratory: No accessory muscle use, No respiratory distress; chest expansion is symmetric, lungs clear to auscultation Cardiovascular: regular rate-rhythm; No JVD; S1 and S2 Gastrointestinal: No tender; soft, round, audible bowel sounds Rectal: deferred Extremities: no lower extremity edema bilateral Neurologic/Psychiatric: grossly intact, power is 5/5 both on sides Skin: No rash, No ulcerations Data Review Labs Laboratory Tests 02/10/19 21:05: White Blood Count 10.4, Red Blood Count 4.83, Hemoglobin 15.4, Hematocrit 43, Mean Corpuscular Volume 89, Mean Corpuscular Hemoglobin 32, Mean Corpuscular Hemoglobin Concent 36, Red Cell Distribution Width 13.4, Platelet Count 211, Mean Platelet Volume 10.5H, Neutrophils (%) (Auto) 51, Lymphocytes (%) (Auto) 37 , Monocytes (%) (Auto) 9, Eosinophils (%) (Auto) 3, Basophils (%) (Auto) 0, Neutrophils # (Auto) 5.3, Lymphocytes # (Auto) 3.8, Monocytes # (Auto) 0.9, Eosinophils # (Auto) 0.3, Basophils # (Auto) 0.0, Prothrombin Time 12.8, INR Comment 0.9, Activated Partial Thromboplast Time 34, Sodium Level 141, Potassium Level 4.1, Chloride Level 108H, Carbon Dioxide Level 21, Anion Gap 12 , Blood Urea Nitrogen 15, Creatinine 1.00, Estimat Glomerular Filtration Rate > 60, BUN/Creatinine Ratio 15, Glucose Level 110H, Calcium Level 9.7, Corrected Calcium 9.5, Magnesium Level 2.5H, Total Bilirubin 0.4, Aspartate Amino Transf ( AST/SGOT) 32, Alanine Aminotransferase (ALT/SGPT) 49, Alkaline Phosphatase 75, Total Creatine Kinase 241H, Creatine Kinase MB 2.0, Myoglobin 73.7, Troponin I < 0.028, B-Type Natriuretic Peptide 10.1, Total Protein 7.1, Albumin 4.3, Amylase Level 25, Lipase 29 02/11/19 03:05: White Blood Count 9.0, Red Blood Count 4.72, Hemoglobin 14.8, Hematocrit 43, Mean Corpuscular Volume 90, Mean Corpuscular Hemoglobin 31, Mean Corpuscular Hemoglobin Concent 35, Red Cell Distribution Width 13.6, Platelet Count 185, Mean Platelet Volume 10.6H, Neutrophils (%) (Auto) 52, Lymphocytes (%) (Auto) 36 , Monocytes (%) (Auto) 9, Eosinophils (%) (Auto) 3, Basophils (%) (Auto) 0, Neutrophils # (Auto) 4.7, Lymphocytes # (Auto) 3.2, Monocytes # (Auto) 0.8, Eosinophils # (Auto) 0.3, Basophils # (Auto) 0.0 02/11/19 03:10: Sodium Level 139, Potassium Level 4.2, Chloride Level 108H, Carbon Dioxide Level 22, Anion Gap 9, Blood Urea Nitrogen 15, Creatinine 0.91, Estimat Glomerular Filtration Rate > 60, BUN/Creatinine Ratio 16, Glucose Level 97, Calcium Level 9.3, Corrected Calcium 9.3, Total Bilirubin 0.5, Aspartate Amino Transf (AST/SGOT) 26, Alanine Aminotransferase (ALT/SGPT) 43, Alkaline Phosphatase 59, Troponin I < 0.028, Total Protein 6.4, Albumin 4.0 02/11/19 03:35: Triglycerides Level 175H, Cholesterol Level 160, LDL Cholesterol Direct 114, VLDL Cholesterol 35, HDL Cholesterol 28L A/P-Cardiology Assessment/Admission Diagnosis Non-specific chest pain of undetermined etiology; no evidence of ACS H/O open heart surgery at age 16 at [facility] in [place] to repair a heart valve - exact details unknown Sleep apnea - CPAP tx - follows with Dr. Macias Echo of 3-6-[address] Walton showed . Mild left ventricular hypertrophy noted diffusely with normal systolic function. Estimated ejection fraction 60%. Diastolic dysfunction is suggested by Doppler. Mild mitral and tricuspid regurgitation. Estimated pulmonary artery pressure of 30 mmHg. Chew tobacco use - cessation advised Reports h/o "blood thinner" - medication and and reason unknown HTN HLD Elevated BMI of approx 46 H/O bilat knee replacements Discussion and Recomendations Chest pain of undetermined etiology - no evidence of ACS - no further c/o CP D/t c/o, h/o and risk factors advise evaluation of coronary perfusion with an MPI. He does not wish to stay in the hosp for this. States will have it done as an outpt Echocardiogram today to eval structure and LVEF Advised immediate and complete tobacco cessation Outpt f/u advised Clinical Quality Measures AMI/AHF: ASA po Prior to arrival: No DVT/VTE Risk/Contraindication: Risk Factor Score Per Nursin RFS Level Per Nursing on Admit: 2=Moderate RAFAEL ZUNIGA MD FACP FAC CCDS Feb 11, 2019 13:48
== END 2019-02-11 14:48 | disposition home or self-care (01) ==
LOC: EDUNIT# 21:00 → ER 21:01 → ICU 02-11 00:01
PROVIDERS: ADMIT Internal Medicine; ATTEND Internal Medicine
DX: R07.9 Chest pain, unspecified (principal); I10 Essential (primary) hypertension; E78.5 Hyperlipidemia, unspecified; I08.1 Rheumatic disorders of both mitral and tricuspid valves; F17.220 Nicotine dependence, chewing tobacco, uncomplicated; E03.9 Hypothyroidism, unspecified; G47.30 Sleep apnea, unspecified; E66.01 Morbid (severe) obesity due to excess calories; Z68.42 Body mass index [BMI] 45.0-49.9, adult; Z79.82 Long term (current) use of aspirin; Z79.899 Other long term (current) drug therapy
CPT/HCPCS: 36415; 71045; 71275; 80053; 80061; 82150; 82550; 82553; 83690; 83735; 83874; 83880; 84484; 85025; 85610; 85730; 93005; 93041; 93306

== ENCOUNTER → 2019-02-12 | Outpatient (CLI) | payer BC ==
[~2019-02-12] MED LIST: AMLO5TAB9 PO; ASPI-999 PO; FURO20TA4 PO; GLUC100016 PO; LEVO25TA5 PO; MULT-1067 PO; OMG1KC PO; POTA10TA10 PO; REGADENOSON 0.4 MG/5 ML SYR (LEXISCAN) IV ONE
[2019-02-12] MEDS: CATHETER FLUSH 10 ML SYR IV PRN ×2 (11:35→11:36)
--- NOTE | 2019-02-12 20:07 | STRESS TEST ---
DATE OF SERVICE: 02/12/2019 RESTING AND POST REGADENOSON TECHNETIUM-99M TETROFOSMIN SPECT CT IMAGING ORDERING PHYSICIAN: Dr. Serra. PRIMARY CARE PHYSICIAN: Dr. Hinojosa. CLINICAL DIAGNOSIS: Chest discomfort. Baseline images were carried out after injection of 10.91 mCi of technetium-99m Tetrofosmin. This was followed by 0.4 mg regadenoson and 29.5 mCi of technetium-99m Tetrofosmin for stress imaging. The electrocardiogram showed sinus rhythm at baseline. The electrocardiogram did not change significantly with the regadenoson infusion. Review of images at rest and following stress indicates a somewhat patchy tracer uptake, both at rest and following regadenoson infusion. There does not appear to be distinct perfusion defects consistent with significant myocardial ischemia or infarction. Gated images show well preserved global left ventricular systolic function without distinct regional wall motion abnormality. Left ventricular ejection fraction is calculated to be 50%. Left ventricular end diastolic volume is 79 mL. TID is present (1.58). CONCLUSIONS: 1. This study shows some ventricular dilatation following regadenoson infusion. Multivessel coronary artery disease needs to be considered, although there is no direct evidence of myocardial infarction or significant ischemia on the images. 2. Well preserved global left ventricular systolic function with a calculated ejection fraction of 50%. 3. No regional wall motion abnormality. Job ID: [id number] DocumentID: [id number] Dictated Date: 02/12/2019 16:43:05 Train Station Agent Date: 02/12/2019 20:06:37 Dictated By: RAFAEL SERRA MD, MA, FACP, FACC,
== END ==
LOC: CARD 11:01
PROVIDERS: ATTEND Internal Medicine Cardiovascular Disease
DX: R07.9 Chest pain, unspecified (principal)
CPT/HCPCS: 78452; 93017

== ENCOUNTER 2019-03-05 12:54 | Day surgery (SDC) | payer BC ==
[~2019-03-05] VITALS: Ht 177.8 cm; Wt 145.1 kg
[~2019-03-05 12:54] MED LIST changes: -REGADENOSON 0.4 MG/5 ML SYR (LEXISCAN) IV ONE
--- OUTSIDE RECORDS SUMMARY | 2019-03-05 12:57 | XMS REPORT | Continuity of Care Document ---
Author Organization Unknown Address Unknown Allergies Active Description Code Type Severity Reaction Onset Reported/Identified Relationship to Patient Clinical Status Yes No Known Drug Allergies [id number] Drug Allergy Unknown N/A 02/10/2019 Medications There is no data. Problems Date Dx Coded Attending Type Code Diagnosis Diagnosed By 01/10/2017 ACOSTA WHITE MD Ot I27.2 OTHER SECONDARY PULMONARY HYPERTENSION 01/11/2017 ACOSTA WHITE MD Ot I27.2 OTHER SECONDARY PULMONARY HYPERTENSION 01/19/2017 ACOSTA WHITE MD, Ot I27.2 OTHER SECONDARY PULMONARY HYPERTENSION 03/08/2018 DENNIS RICKS DO Ot G47.33 OBSTRUCTIVE SLEEP APNEA (ADULT) (PEDIATR 03/08/2018 DENNIS RICKS DO Ot I10 ESSENTIAL (PRIMARY) HYPERTENSION 03/08/2018 DENNIS RICKS DO Ot R06.83 SNORING 03/12/2018 DENNIS RICKS DO Ot G47.33 OBSTRUCTIVE SLEEP APNEA (ADULT) (PEDIATR 03/12/2018 RICKSDENNIS CRYSTAL DO Ot I10 ESSENTIAL (PRIMARY) HYPERTENSION 03/12/2018 RICKSDENNIS CRYSTAL DO Ot R06.83 SNORING 03/14/2018 DENNIS RICKS DO Ot G47.33 OBSTRUCTIVE SLEEP APNEA (ADULT) (PEDIATR 03/14/2018 RICKSDENNIS CRYSTAL DO Ot I10 ESSENTIAL (PRIMARY) HYPERTENSION 03/14/2018 DENNIS RICKS DO Ot R06.83 SNORING 03/30/2018 ANTWAN CH MD Ot R10.9 UNSPECIFIED ABDOMINAL PAIN 04/01/2018 WICHO WOODSON APRN Ot G47.33 OBSTRUCTIVE SLEEP APNEA (ADULT) (PEDIATR 04/04/2018 WICHO WOODSON APRN Ot G47.33 OBSTRUCTIVE SLEEP APNEA (ADULT) (PEDIATR 04/09/2018 ANTWAN CH MD Ot R10.9 UNSPECIFIED ABDOMINAL PAIN 02/11/2019 BRIGITTE ORTEGA DO Ot E03.9 HYPOTHYROIDISM, UNSPECIFIED 02/11/2019 ORTEGA DO, BRIGITTE Ot E66.01 MORBID (SEVERE) OBESITY DUE TO EXCESS CA 02/11/2019 ORTEGA DO, BRIGITTE Ot E78.5 HYPERLIPIDEMIA, UNSPECIFIED 02/11/2019 ORTEGA DO, BRIGITTE Ot F17.220 NICOTINE DEPENDENCE, CHEWING TOBACCO, UN 02/11/2019 ORTEGA DO, BRIGITTE Ot G47.30 SLEEP APNEA, UNSPECIFIED 02/11/2019 ORTEGA DO, BRIGITTE Ot I08.1 RHEUMATIC DISORDERS OF BOTH MITRAL AND T 02/11/2019 ORTEGA DO, BRIGITTE Ot I10 ESSENTIAL (PRIMARY) HYPERTENSION 02/11/2019 ORTEGA DO, BRIGITTE Ot R07.9 CHEST PAIN, UNSPECIFIED 02/11/2019 ORTEGA DO, BRIGITTE Ot Z68.42 BODY MASS INDEX (BMI) 45.0-49.9, ADULT 02/11/2019 ORTEGA DO, BRIGITTE Ot 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 02/11/2019 ORTEGA DO, BRIGITTE Ot Z79.899 OTHER SENIOR LIVING (CURRENT) DRUG THERAPY 02/11/2019 ORTEGA DO, BRIGITTE Ot E03.9 HYPOTHYROIDISM, UNSPECIFIED 02/11/2019 ORTEGA DO, BRIGITTE Ot E66.01 MORBID (SEVERE) OBESITY DUE TO EXCESS CA 02/11/2019 ORTEGA DO, BRIGITTE Ot E78.5 HYPERLIPIDEMIA, UNSPECIFIED 02/11/2019 ORTEGA DO, BRIGITTE Ot F17.220 NICOTINE DEPENDENCE, CHEWING TOBACCO, UN 02/11/2019 ORTEGA DO, BRIGITTE Ot G47.30 SLEEP APNEA, UNSPECIFIED 02/11/2019 ORTEGA DO, BRIGITTE Ot I08.1 RHEUMATIC DISORDERS OF BOTH MITRAL AND T 02/11/2019 ORTEGA DO, BRIGITTE Ot I10 ESSENTIAL (PRIMARY) HYPERTENSION 02/11/2019 ORTEGA DO, BRIGITTE Ot R07.9 CHEST PAIN, UNSPECIFIED 02/11/2019 ORTEGA DO, BRIGITTE Ot Z68.42 BODY MASS INDEX (BMI) 45.0-49.9, ADULT 02/11/2019 ORTEGA DO, BRIGITTE Ot Z79.82 SENIOR LIVING (CURRENT) USE OF ASPIRIN 02/11/2019 ORTEGA DO, BRIGITTE Ot 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 Results Test Result Range Complete blood count (CBC) with automated white blood cell (WBC) differential - 02/10/19 21:05 Blood leukocytes automated count (number/volume) 10.4 10*3/uL 4.3-11.0 Blood erythrocytes automated count (number/volume) 4.83 10*6/uL 4.35-5.85 Venous blood hemoglobin measurement (mass/volume) 15.4 g/dL 13.3-17.7 Blood hematocrit (volume fraction) 43 % 40-54 Automated erythrocyte mean corpuscular volume 89 [foz_us] 80-99 Automated erythrocyte mean corpuscular hemoglobin (mass per erythrocyte) 32 pg 25-34 Automated erythrocyte mean corpuscular hemoglobin concentration measurement ( mass/volume) 36 g/dL 32-36 Automated erythrocyte distribution width ratio 13.4 % 10.0-14.5 Automated blood platelet count (count/volume) 211 10*3/uL 130-400 Automated blood platelet mean volume measurement 10.5 [foz_us] 7.4-10.4 Automated blood neutrophils/100 leukocytes 51 % 42-75 Automated blood lymphocytes/100 leukocytes 37 % 12-44 Blood monocytes/100 leukocytes 9 % 0-12 Automated blood eosinophils/100 leukocytes 3 % 0-10 Automated blood basophils/100 leukocytes 0 % 0-10 Blood neutrophils automated count (number/volume) 5.3 10*3 1.8-7.8 Blood lymphocytes automated count (number/volume) 3.8 10*3 1.0-4.0 Blood monocytes automated count (number/volume) 0.9 10*3 0.0-1.0 Automated eosinophil count 0.3 10*3/uL 0.0-0.3 Automated blood basophil count (count/volume) 0.0 10*3/uL 0.0-0.1 Comprehensive metabolic panel - 02/10/19 21:05 Serum or plasma sodium measurement (moles/volume) 141 mmol/L 135-145 Serum or plasma potassium measurement (moles/volume) 4.1 mmol/L 3.6-5.0 Serum or plasma chloride measurement (moles/volume) 108 mmol/L 98-107 Carbon dioxide 21 mmol/L 21-32 Serum or plasma anion gap determination (moles/volume) 12 mmol/L 5-14 Serum or plasma urea nitrogen measurement (mass/volume) 15 mg/dL 7-18 Serum or plasma creatinine measurement (mass/volume) 1.00 mg/dL 0.60-1.30 Serum or plasma urea nitrogen/creatinine mass ratio 15 NRG Serum or plasma creatinine measurement with calculation of estimated glomerular filtration rate > NRG Serum or plasma glucose measurement (mass/volume) 110 mg/dL 70-105 Serum or plasma calcium measurement (mass/volume) 9.7 mg/dL 8.5-10.1 Serum or plasma total bilirubin measurement (mass/volume) 0.4 mg/dL 0.1-1.0 Serum or plasma alkaline phosphatase measurement (enzymatic activity/volume) 75 U/L 40-136 Serum or plasma aspartate aminotransferase measurement (enzymatic activity/ volume) 32 U/L 5-34 Serum or plasma alanine aminotransferase measurement (enzymatic activity/volume ) 49 U/L 0-55 Serum or plasma protein measurement (mass/volume) 7.1 g/dL 6.4-8.2 Serum or plasma albumin measurement (mass/volume) 4.3 g/dL 3.2-4.5 CALCIUM CORRECTED 9.5 mg/dL 8.5-10.1 Magnesium - 02/10/19 21:05 Magnesium 2.5 mg/dL 1.8-2.4 Serum or plasma creatine kinase measurement (enzymatic activity/volume) - 02/10 21:05 Serum or plasma creatine kinase measurement (enzymatic activity/volume) 241 U/L 30-200 Serum or plasma creatine kinase MB measurement (enzymatic activity/volume) - 21:05 Serum or plasma creatine kinase MB measurement (enzymatic activity/volume) 2.0 ng/mL <6.6 Serum or plasma troponin i.cardiac measurement (mass/volume) - 02/10/19 21:05 Serum or plasma troponin i.cardiac measurement (mass/volume) < ng/ mL <0.028 PT panel in platelet poor plasma by coagulation assay - 02/10/19 21:05 Prothrombin time (PT) in platelet poor plasma by coagulation assay 12.8 s 12.2-14.7 INR in platelet poor plasma or blood by coagulation assay 0.9 0.8-1.4 Activated partial thromboplastin time (aPTT) in platelet poor plasma bycoagulation assay - 02/10/19 21:05 Activated partial thromboplastin time (aPTT) in platelet poor plasma bycoagulation assay 34 s 24-35 Myoglobin, serum - 02/10/19 21:05 Myoglobin, serum 73.7 ng/mL 10.0-92.0 Serum or plasma amylase measurement (enzymatic activity/volume) - 02/10/19 21: 05 Serum or plasma amylase measurement (enzymatic activity/volume) 25 U /L 25-125 Lipase - 02/10/19 21:05 Lipase 29 U/L 8-78 Serum or plasma lithium measurement (moles/volume) - 02/10/19 21:05 BNP level 10.1 pg/mL <100.0 Complete blood count (CBC) with automated white blood cell (WBC) differential - 02/11/19 03:05 Blood leukocytes automated count (number/volume) 9.0 10*3/uL 4.3-11.0 Blood erythrocytes automated count (number/volume) 4.72 10*6/uL 4.35-5.85 Venous blood hemoglobin measurement (mass/volume) 14.8 g/dL 13.3-17.7 Blood hematocrit (volume fraction) 43 % 40-54 Automated erythrocyte mean corpuscular volume 90 [foz_us] 80-99 Automated erythrocyte mean corpuscular hemoglobin (mass per erythrocyte) 31 pg 25-34 Automated erythrocyte mean corpuscular hemoglobin concentration measurement ( mass/volume) 35 g/dL 32-36 Automated erythrocyte distribution width ratio 13.6 % 10.0-14.5 Automated blood platelet count (count/volume) 185 10*3/uL 130-400 Automated blood platelet mean volume measurement 10.6 [foz_us] 7.4-10.4 Automated blood neutrophils/100 leukocytes 52 % 42-75 Automated blood lymphocytes/100 leukocytes 36 % 12-44 Blood monocytes/100 leukocytes 9 % 0-12 Automated blood eosinophils/100 leukocytes 3 % 0-10 Automated blood basophils/100 leukocytes 0 % 0-10 Blood neutrophils automated count (number/volume) 4.7 10*3 1.8-7.8 Blood lymphocytes automated count (number/volume) 3.2 10*3 1.0-4.0 Blood monocytes automated count (number/volume) 0.8 10*3 0.0-1.0 Automated eosinophil count 0.3 10*3/uL 0.0-0.3 Automated blood basophil count (count/volume) 0.0 10*3/uL 0.0-0.1 Comprehensive metabolic panel - 02/11/19 03:10 Serum or plasma sodium measurement (moles/volume) 139 mmol/L 135-145 Serum or plasma potassium measurement (moles/volume) 4.2 mmol/L 3.6-5.0 Serum or plasma chloride measurement (moles/volume) 108 mmol/L 98-107 Carbon dioxide 22 mmol/L 21-32 Serum or plasma anion gap determination (moles/volume) 9 mmol/L 5-14 Serum or plasma urea nitrogen measurement (mass/volume) 15 mg/dL 7-18 Serum or plasma creatinine measurement (mass/volume) 0.91 mg/dL 0.60-1.30 Serum or plasma urea nitrogen/creatinine mass ratio 16 NRG Serum or plasma creatinine measurement with calculation of estimated glomerular filtration rate > NRG Serum or plasma glucose measurement (mass/volume) 97 mg/dL 70-105 Serum or plasma calcium measurement (mass/volume) 9.3 mg/dL 8.5-10.1 Serum or plasma total bilirubin measurement (mass/volume) 0.5 mg/dL 0.1-1.0 Serum or plasma alkaline phosphatase measurement (enzymatic activity/volume) 59 U/L 40-136 Serum or plasma aspartate aminotransferase measurement (enzymatic activity/ volume) 26 U/L 5-34 Serum or plasma alanine aminotransferase measurement (enzymatic activity/volume ) 43 U/L 0-55 Serum or plasma protein measurement (mass/volume) 6.4 g/dL 6.4-8.2 Serum or plasma albumin measurement (mass/volume) 4.0 g/dL 3.2-4.5 CALCIUM CORRECTED 9.3 mg/dL 8.5-10.1 Serum or plasma troponin i.cardiac measurement (mass/volume) - 02/11/19 03:10 Serum or plasma troponin i.cardiac measurement (mass/volume) < ng/ mL <0.028 Lipid 1996 panel - 02/11/19 03:35 Serum or plasma triglyceride measurement (mass/volume) 175 mg/dL <150 Serum or plasma cholesterol measurement (mass/volume) 160 mg/dL < 200 Serum or plasma cholesterol in HDL measurement (mass/volume) 28 mg/ dL 40-60 Cholesterol in LDL [mass/volume] in serum or plasma by direct assay 114 mg/dL 1-129 Serum or plasma cholesterol in VLDL measurement (mass/volume) 35 mg/ dL 5-40 Encounters ACCT No. Visit Date/Time Discharge Status Pt. Type Provider Facility Loc./Unit Complaint [id number] 02/12/2019 11:01:00 02/12/2019 23:59:59 CLS Outpatient EFRAIN CHEEMA FACC, RAFAEL GILBERT CCDS [facility] CARD CHEST PAIN [id number] 02/10/2019 21:02:00 02/11/2019 11:39:00 DIS Outpatient BRIGITTE ORTEGA DO [facility] ICU CHEST PAIN [id number] 03/31/2018 19:55:00 04/01/2018 05:00:00 DIS Outpatient WICHO WOODSON APRN [facility] SLEEP OBSTRUCTIVE SLEEP APNEA G47.33 [id number] 03/29/2018 15:56:00 03/29/2018 23:59:59 CLS Outpatient ANTWAN CH MD [facility] RAD ABDOMINAL PAIN [id number] 03/08/2018 16:19:00 03/08/2018 16:38:00 DIS Outpatient DENNIS RICKS DO [facility] SLEEP SNORING, HPN [id number] 01/09/2017 12:53:00 01/09/2017 23:59:59 CLS Outpatient ACOSTA WHITE MD [facility] CARD PULMONARY HYPERTENSION [id number] 03/05/2019 15:00:00 PEN Preadmit RAFAEL ZUNIGA MD, FACC, FACP CCDS [facility] CATH CHEST DISCOMFORT
[2019-03-05] MEDS ORDERED: NS IV 1000 ML 1,000 ML ONE (13:02)
[2019-03-05] MEDS ORDERED: LIDOCAINE 1% INJ 20 ML 20 ML VIAL ONE (13:02)
[2019-03-05] MEDS ORDERED: HEParin (CATH LAB) 2,000 ML IV ONE (13:02)
[2019-03-05] MEDS ORDERED: NS IV 1000 ML 1,000 ML IV SCH ×2 (13:14→17:53)
[2019-03-05 13:32] VITALS: BP 152/98
[2019-03-05 13:40] LABS: HEMOGLOBIN 15.6 G/DL (13.3-17.7); MEAN PLATELET VOLUME 10.5 FL (7.4-10.4); RED CELL DISTRIBUTION WIDTH 13.3 % (10.0-14.5); WHITE BLOOD COUNT 8.3 10^3/uL (4.3-11.0)
[2019-03-05 13:52] LABS: INR 0.9 (0.8-1.4); PROTHROMBIN TIME PATIENT 12.7 SEC (12.2-14.7)
[2019-03-05 13:58] LABS: ALANINE AMINOTRANSFERASE 45 U/L (0-55); ALBUMIN 4.5 GM/DL (3.2-4.5); ALKALINE PHOSPHATASE 57 U/L (40-136); BUN/CREATININE RATIO 16; CALCIUM 10.2 MG/DL (8.5-10.1); CARBON DIOXIDE 23 MMOL/L (21-32); CHLORIDE 105 MMOL/L (98-107); CHOLESTEROL 190 MG/DL (< 200); CREATININE SERUM 0.91 MG/DL (0.60-1.30); GFR ESTIMATED > 60; GLUCOSE 93 MG/DL (70-105); HDL CHOLESTEROL 33 MG/DL (40-60); POTASSIUM 4.1 MMOL/L (3.6-5.0); SODIUM 140 MMOL/L (135-145); TOTAL PROTEIN 7.5 GM/DL (6.4-8.2); TRIGLYCERIDES 182 MG/DL (<150); VLDL CHOLESTEROL 36 MG/DL (5-40)
[2019-03-05] MEDS ORDERED: MULT-1061 PO (14:03)
[2019-03-05] MEDS ORDERED: ASPI-983 PO (14:03)
[2019-03-05] MEDS ORDERED: GLUC1CAP37 PO (14:03)
[2019-03-05] MEDS ORDERED: MIDAZOLAM 5 MG/5 ML (VERSED) VIAL ONE (14:54)
[2019-03-05] MEDS ORDERED: fentaNYL INJECTION 100 MCG/2 ML AMP ONE (14:57)
--- NOTE | 2019-03-05 15:03 | Cardiac Procedure Note-CS/ASA ---
Pre-Procedure Note Pre-Op Procedure Note H&P Reviewed The H&P was reviewed, patient examined and no changes noted. Date H&P Reviewed: Mar 05, 2019 Time H&P Reviewed: 15:02 Conscious Sedation Pre-Proced Time 15:02 ASA Score 3 For ASA 3 and 4: Consider anesthesia and medical clearance. Also, for patients with a history of failed moderate sedation consider anesthesia. Airway Lungs Heart ASA score ASA 1: a normal healthy patient ASA 2: a patient with a mild systemic disease (mid diabetes, controlled hypertension, obesity ASA 3: a patient with a severe systemic disease that limits activity (angina , COPD, prior Myocardial infarction) ASA 4: a patient with an incapacitating disease that is a constant threat to life (CHF, renal failure) ASA 5: a moribund patient not expected to survive 24 hrs. (ruptured aneurysm) ASA 6: a declared brain- patient whose organs are being harvested. For emergent operations, add the letter E after the classification Mallampati Classification Grade 2 Sedation Plan Analgesia, Amnesia, Plan communicated to team members, Discussed options with patient/fam, Discussed risks with patient/fam The patient is an appropriate candidate to undergo the planned procedure, sedation, and anesthesia. The patient immediately re-assessed prior to indication. RAFAEL ZUNIGA MD FACP FAC CCDS Mar 05, 2019 15:03
[2019-03-05 16:15] VITALS: BP 122/75
--- NOTE | 2019-03-05 17:57 | Discharge Inst-Post CATH ---
Discharge Inst-CATH/EP Post Cardiac Cath/EP D/C Inst Follow Up/Plan F/u with Dr Serra in 2 weeks <b>CARDIAC CATH/EP PROCEDURE DISCHARGE INSTRUCTIONS</b> ACTIVITY * Go Home directly and rest. * Limit activity of the leg (or wrist if it was used) for 7 days including aerobics, swimming, jogging, bicycling, etc. * Restrict stair-climbing for 7 days if possible, if not, climb up with your non -cath leg, then bring together on the same step. * Avoid lifting, pushing, pulling or excessive movement of the affected extremity for 7 days. * Customary sexual activity may be resumed after 2 days-use caution not to use a position that strains or causes pain to the affected extremity. * No driving for 24 hours. * NO SMOKING. * Avoid straining for bowel movements for 7 days. * Gentle walking on level ground is allowed. * Returning to work will depend on the type of procedure and the results. Your doctor will discuss this with you. CALL YOUR DOCTOR FOR ANY OF THE FOLLOWING: *If bleeding from the puncture site occurs- Apply gentle pressure to site with clean cloth and call your doctor or EMS. * If a knot or lump forms under the skin, increases in size, or causes pain. * If bruising appears to be worsening or moving further down your leg instead of disappearing. * Temperature above 101 F. CARE OF YOUR GROIN INCISION; * Bruising or purple discoloration of the skin near the puncture site is common. * You may shower only, no bathtub bathing for 5 days. Be careful to avoid slipping as your leg may feel stiff. * If a closure device was used on your femoral artery, please see the attached guide regarding care of the device and your leg. * Leave dressing on FOR 24 hours. CARE OF YOUR WRIST INCISION; * Bruising or purple discoloration of the skin near the puncture site is common. * You may shower. * DO NOT submerge wrist. * Leave dressing on FOR 24 hours. RAFAEL SERRA MD [facility] CCDS Mar 05, 2019 17:57
--- NOTE | 2019-03-05 17:59 | Discharge Inst-Cardiology ---
Discharge Inst-Cardiac Discharge Medications Continued Medications: Amlodipine Besylate (Amlodipine Besylate) 5 Mg Tablet 5 MG PO DAILY, TAB Aspirin (Aspirin EC) 81 Mg Tablet.dr 81 MG PO DAILY, TAB Furosemide (Furosemide) 20 Mg Tablet 20 MG PO DAILY, TAB Glucosa Brooks 2Kcl/Chondroitin Brooks (Glucosamine & Chondroitin Cap) 1 Each Capsule 2 CAP PO DAILY, CAP Levothyroxine Sodium (Levothyroxine Sodium) 25 Mcg Tablet 25 MCG PO DAILY, TAB Multivit-Min/FA/Lycopen/Lutein (Centrum Silver Men Tablet) 1 Each Tablet 1 TAB PO DAILY, TAB Stamps 3 Polyunsat Fatty Acids (Fish Oil 1,000 mg Capsule) 1,000 Mg Cap 3000 MG PO DAILY, CAP Potassium Chloride (Potassium Chloride) 10 Meq Tablet.er 10 MEQ PO DAILY, TAB Patient Instructions Patient Instructions: F/u with Dr Serra in 2 weeks RAFAEL SERRA MD FACP [facility] CCDS Mar 05, 2019 17:59
[2019-03-05] MEDS ORDERED: PATIENT MAY USE OWN MEDS, ALL PO SCH (18:00)
[2019-03-05 19:42] VITALS: BP 139/85
[2019-03-05 20:35] VITALS: BP 140/80
--- NOTE | 2019-03-06 00:31 | CARDIAC CATHETERIZATION ---
DATE OF SERVICE: 03/05/2019 CARDIAC CATHETERIZATION REPORT HISTORY OF PRESENT ILLNESS: The patient is a 59-year-old man who has a history of cardiac surgery (probably a shunt repair) at age 16, the details of which are not known. He has had the symptom of shortness of breath and chest discomfort. Myocardial perfusion imaging showed transient ischemic dilatation. Accordingly, cardiac catheterization was recommended and informed consent was obtained. PROCEDURE: She was brought to the cardiac catheterization laboratory in a fasting state. Right groin was prepared and draped in the usual sterile fashion. Lidocaine 1% for local anesthesia. Modified Seldinger technique was used to advance a 5-Jordanian sheath in the right femoral artery. A 5-Jordanian JL4 catheter for left coronary angiography and 5-Jordanian JR4 catheter for right coronary angiography, 5-Jordanian pigtail catheter for left heart catheterization, left ventricular angiography. Angiography of the right femoral artery was carried out through the sheath. Mynx was used to achieve hemostasis. He tolerated the procedure well. HEMODYNAMICS: Left ventricular end-diastolic pressure following coronary angiography was 9 mmHg. There is no significant pressure gradient pullback across the aortic valve. Ascending aortic pressure 108/67 with a mean of 67 of mmHg. CORONARY ANGIOGRAPHY: Left main coronary artery, left anterior descending artery, left circumflex artery, right coronary artery are all free of any angiographically significant coronary artery disease. LEFT VENTRICULAR ANGIOGRAPHY: Left ventricular angiography shows normal left ventricular systolic function with ejection fraction approximately 60%. CONCLUSIONS: 1. No angiographically significant coronary artery disease. 2. Normal global left ventricular systolic function with ejection fraction approximately 60%. 3. Normal left ventricular end diastolic pressure. DISCUSSION AND RECOMMENDATIONS: Based on the results of the study, it appears appropriate to continue a conservative regimen. The myocardial perfusion imaging study appears to have been a false positive study. Outpatient followup is advised. Job ID: [id number] DocumentID: [id number] Dictated Date: 03/05/2019 18:07:07 Fruit Packer Face And Fill Date: 03/06/2019 00:31:16 Dictated By: RAFAEL ZUNIGA MD, MA, FACP, FACC,
== END 2019-03-05 20:35 | disposition home or self-care (01) ==
LOC: CATH 12:54 → ICU 16:08 → CATH 20:35
PROVIDERS: ATTEND Internal Medicine Cardiovascular Disease
DX: R07.89 Other chest pain (principal); R06.02 Shortness of breath; I10 Essential (primary) hypertension; E78.5 Hyperlipidemia, unspecified; F17.220 Nicotine dependence, chewing tobacco, uncomplicated; G47.30 Sleep apnea, unspecified; E66.01 Morbid (severe) obesity due to excess calories; Z68.42 Body mass index [BMI] 45.0-49.9, adult; Z99.89 Dependence on other enabling machines and devices; Z79.82 Long term (current) use of aspirin; Z79.899 Other long term (current) drug therapy
CPT/HCPCS: 36415; 80053; 80061; 85027; 85610; 85730; 87081; 93458

== ENCOUNTER → 2019-08-28 | Outpatient (CLI) | payer BC ==
[~2019-08-28] MED LIST changes: +ASPI-983 PO; +GLUC1CAP37 PO; +MULT-1061 PO
== END ==
LOC: RAD 07:52
PROVIDERS: ATTEND Orthopaedic Surgery
DX: M75.121 Complete rotator cuff tear or rupture of right shoulder, not specified as traumatic (principal); Z53.8 Procedure and treatment not carried out for other reasons

== ENCOUNTER 2019-09-30 14:48 | Outpatient (CLI) | payer BC ==
[~2019-09-30] VITALS: Ht 177.8 cm; Wt 149.1 kg
[2019-09-30 14:53] VITALS: BP 130/76
[2019-09-30 15:45] LABS: BUN/CREATININE RATIO 21; CALCIUM 9.3 MG/DL (8.5-10.1); CARBON DIOXIDE 24 MMOL/L (21-32); CHLORIDE 105 MMOL/L (98-107); GFR ESTIMATED > 60; GLUCOSE 91 MG/DL (70-105); POTASSIUM 4.4 MMOL/L (3.6-5.0); SODIUM 140 MMOL/L (135-145)
== END 2019-09-30 15:20 | disposition home or self-care (01) ==
LOC: PREOP 14:48
PROVIDERS: ATTEND Orthopaedic Surgery
DX: Z01.818 Encounter for other preprocedural examination (principal); Z01.812 Encounter for preprocedural laboratory examination; S43.401A Unspecified sprain of right shoulder joint, initial encounter
CPT/HCPCS: 36415; 80048; 87081

== ENCOUNTER 2019-10-09 07:45 | Day surgery (SDC) | payer BC ==
--- NOTE | 2019-09-26 13:52 | HISTORY AND PHYSICAL ---
DATE OF SERVICE: DATE OF SURGERY: This will be outpatient surgery on 10/09/2019 for right shoulder arthroscopy. HISTORY OF PRESENT ILLNESS: The patient is a 59-year-old right hand dominant gentleman with complaints of several year history of progressive worsening right shoulder pain. He reports pain with overhead activities. He reports stiffness. He underwent an MRI, which reveals some rotator cuff tendinosis, but no disruption. There was evidence of labral degeneration and this was a noncontrast MRI. Due to functional impairment and failure to improve with conservative measures, the patient elected to proceed with surgical intervention. REVIEW OF SYSTEMS: No chest pain, no shortness of breath, no dysuria. PAST MEDICAL HISTORY: Sleep apnea, obesity, hypothyroidism. PAST SURGICAL HISTORY: Bilateral knee arthroscopy, open heart valve repair and dental. FAMILY HISTORY: Significant for brain cancer. PRIMARY CARE PROVIDER: Dr. Hinojosa. MEDICATIONS: Amlodipine, levothyroxine, glucosamine, fish oil, furosemide, potassium, aspirin. ALLERGIES: No known drug allergies. SOCIAL HISTORY: The patient chews tobacco, drinks alcohol socially. PHYSICAL EXAMINATION: GENERAL: The patient is well-developed, well-nourished, in no acute distress. HEENT: Normocephalic, atraumatic. Pupils are equal, round and reactive to light. Oropharynx is clear. NECK: Supple, no lymphadenopathy. LUNGS: Clear to auscultation bilaterally. HEART: Regular rate and rhythm. ABDOMEN: Soft, nontender, nondistended. EXTREMITIES: His right shoulder demonstrates a positive [place]'s maneuver, positive Neer's and positive Hawkin sign. He has active forward elevation of 170 degrees, external rotation of 80 degrees, internal rotation to his beltline. He has weakness with abduction and external rotation. IMPRESSION: Right shoulder rotator cuff impingement with SLAP tear. PLAN: Right shoulder arthroscopy, biceps tenotomy and acromioplasty. We discussed risks, benefits, options, ramifications and recovery. He understands and wishes to proceed. Job ID: [id number] DocumentID: [id number] Dictated Date: 09/26/2019 13:24:59 Developmental Training Counselor Date: 09/26/2019 13:35:36 Dictated By: TERESE RAUSCH MD
[~2019-10-09] VITALS: Ht 177.8 cm; Wt 149.1 kg
[2019-10-09] VITALS (12 sets, daily range): BP systolic 115–169; BP diastolic 76–99
[~2019-10-09 07:45] MED LIST changes: +oxyCODONE/APAP 5/325MG (PERCOCET 5) TABLET PO PRN
--- NOTE | 2019-10-09 07:51 | Progress Note-Pre Operative ---
Pre-Operative Progress Note H&P Reviewed The H&P was reviewed, patient examined and no changes noted. Date Seen by Provider: Oct 09, 2019 Time Seen by Provider: 07:51 Date H&P Reviewed: Oct 09, 2019 Time H&P Reviewed: 07:51 Pre-Operative Diagnosis: right shoulder SLAP tear TERESE RAUSCH MD Oct 09, 2019 07:51 POS
--- NOTE | 2019-10-09 07:53 | Progress Note-Post Operative ---
Post-Operative Progess Note Surgeon (s)/Parks Recreation Coordinator (s) Surgeon TERESE RAUSCH MD Parks Recreation Coordinator: Jaron Bruce Pre-Operative Diagnosis right shoulder SLAP tear Post-Operative Diagnosis right shoulder SlAP tear, labral tear and partial rotator cuff tear Procedure & Operative Findings Date of Procedure 10/09/19 Procedure Performed/Findings right shoulder arthroscopic biceps tenotomy, labral debridement and acromioplasty Anesthesia Type GETA Estimated Blood Loss Estimated blood loss (mL): minimal Specimens/Packing Specimens Removed none Packing: none TERESE RAUSCH MD Oct 09, 2019 07:53 POS
[2019-10-09] MEDS ORDERED: morphine PF (DURAMORPH) 10 MG/10 ML AMP ONE (08:00)
[2019-10-09] MEDS ORDERED: BUPIVACAINE 0.25% 30 ML (SENSORCAINE) VIAL ONE (08:01)
[2019-10-09] MEDS ORDERED: NEOSTIGMINE 3 MG/3 ML VIAL ONE (08:20)
[2019-10-09] MEDS ORDERED: LIDOCAINE PF 2% 5 ML (XYLOCAINE) VIAL ONE (08:20)
[2019-10-09] MEDS ORDERED: ONDANSETRON 4 MG/2 ML (SDV) Z0FRAN ONE (08:20)
[2019-10-09] MEDS ORDERED: GLYCOPYRROLATE 0.2 MG/ML (ROBINUL) 2 ML VIAL ONE (08:20)
[2019-10-09] MEDS ORDERED: SEVOFLURANE (ULTANE) 15 ML INHAL SOLN ONE ×3 (08:20→12:01)
[2019-10-09] MEDS ORDERED: proPOfol 200 MG/20 ML (DIPRIVAN) VIAL IV ONE (08:20)
[2019-10-09] MEDS ORDERED: ROCURONIUM 10 MG/ML 5 ML SYRINGE IV ONE (08:20)
[2019-10-09] MEDS ORDERED: fentaNYL INJECTION 100 MCG/2 ML AMP ONE (08:21)
[2019-10-09] MEDS ORDERED: MIDAZOLAM 2 MG/2 ML (VERSED) VIAL ONE (08:21)
[2019-10-09] MEDS ORDERED: LACTATED RINGERS 1,000 ML IV PRN (08:22)
[2019-10-09] MEDS ORDERED: ceFAZolin INJECTION 1,000 MG in WATER (STERILE) FOR INJECTION 10 ML IV ONE (08:30)
[2019-10-09] MEDS ORDERED: HYDROmorphone 2 MG/ML VIAL (DILAUDID) ONE (10:02)
[2019-10-09] MEDS ORDERED: SUGAMMADEX 500 MG/5 ML VIAL (BRIDION) IV ONE (10:25)
[2019-10-09] MEDS ORDERED: ONDANSETRON 4 MG/2 ML (SDV) Z0FRAN IVP PRN (11:00)
[2019-10-09] MEDS ORDERED: HYDROmorphone 2 MG/ML VIAL (DILAUDID) IV ONE (11:00)
--- NOTE | 2019-10-09 11:30 | NUR ---
TO AMB SURG FROM PAR PER CART. ALERT, CHEERFUL, RATES RIGHT SHOULDER PAIN 2. PO FLUIDS AND CRACKERS PROVIDED. ABLE TO MOVE FINGERS AND HAND OF RIGHT ARM, FULL SENSATION, CAP REFILL <3 SECONDS. SKIN WARM, PINK. TAPED DRESSING D/I TO RIGHT SHOULDER WITH ICE PACK ON, RIGHT ARM IN SLING.
--- NOTE | 2019-10-09 12:03 | NUR ---
TAKING PO FLUID AND CRACKERS WITHOUT PROBLEM. PERCOCET 5/325 MG, ONE TAB, GIVEN PO FOR C/O RIGHT SHOULDER PAIN RATED 2.
[2019-10-09] MEDS ORDERED: OXYC-471 PO (12:21)
--- NOTE | 2019-10-09 12:40 | NUR ---
RESTING QUIETLY IN BED. NO CHANGE IN SITE OR CMS ASSESSMENTS. PAIN RATED "MAYBE A 1". REQUESTING DISMISSAL.
--- NOTE | 2019-10-09 15:05 | OPERATIVE REPORT ---
DATE OF SERVICE: 10/09/2019 PREOPERATIVE DIAGNOSES: 1. Right shoulder SLAP tear. 2. Right shoulder labral tear. 3. Right shoulder rotator cuff partial thickness tear. PROCEDURES PERFORMED: 1. Right shoulder arthroscopic biceps tenotomy. 2. Right shoulder arthroscopic labral debridement. 3. Right shoulder arthroscopic acromioplasty. SURGEON: Anatoliy Rausch MD. STRETCHER OPERATOR: Jaron Bruce, who assisted throughout the procedure and closed the incisions. ANESTHESIA: General endotracheal by Angel ____, AIRPORT OPERATIONS SUPERVISOR. ESTIMATED BLOOD LOSS: Minimal. DRAINS: None. COMPLICATIONS: None. POSTOPERATIVE PLAN: Sling wear for comfort with progressive range of motion as symptoms allow. The patient was transferred to the recovery room awake and in stable condition. STATEMENT OF MEDICAL NECESSITY: The patient is a 59-year-old right hand dominant gentleman with a several years history of progressively worsening right shoulder pain, worse with overhead activities. An MRI revealed a SLAP tear with a partial thickness rotator cuff tearing and impingement type findings. He tried injections, rest and activity modifications without relief and due to functional impairment and failure to improve with conservative measures, the patient elected to proceed with surgical intervention. Examination under anesthesia revealed forward elevation of 170 degrees, external rotation of 80 degrees, internal rotation of 70 degrees. Arthroscopic findings demonstrated type 2 SLAP tear. In addition, there was an anterior labral flap between the 2 and 3 o'clock positions. The remainder of the capsule labral complex was intact. There was no significant glenoid or humeral head articular wear. The rotator cuff demonstrated mild undersurface fraying with luminal disruption. This was approximately 10% of the undersurface. Subacromial space demonstrated dense bursitis with slope in the anterolateral acromion. DESCRIPTION OF PROCEDURE: After risks and benefits of the procedure were discussed and questions were answered, an informed consent was signed and placed on chart, the operative site was confirmed in the preoperative holding area initialed by the surgeon. The patient was then transferred to the operating room and after adequate levels of general endotracheal anesthetic were obtained, a timeout was called confirming the operative site. Examination under anesthesia was performed with the above findings noted. The right shoulder and upper extremity were prepped and draped in the usual sterile fashion. Shoulder joint was injected with 20 mL of fluid as was the subacromial space. A standard posterior portal was placed under direct visualization. Anterior portal was created in the interval between biceps, subscapularis and glenoid. The biceps anchor was released and the stump was debrided with a shaver. The anterior labral flap was debrided with shaver back to a stable edge. Scope was redirected into the subacromial space. The lateral portal was created. Bursectomy was performed and the acromion was planed to a flat type 1 acromion. The portal sites were closed with 4-0 nylon in a simple interrupted fashion. Shoulder was injected with Duramorph. The port sites were infiltrated with plain Marcaine. A soft dressing and sling were applied and the patient was transferred to the recovery room awake and in stable condition. Job ID: [id number] DocumentID: [id number] Dictated Date: 10/09/2019 10:37:05 Insights Manager Date: 10/09/2019 15:04:38 Dictated By: ANATOLIY RAUSCH MD
--- NOTE | 2019-10-09 15:54 | Anesthesia-General Post-Op ---
General Patient Condition Mental Status/LOC: Same as Preop Cardiovascular: Satisfactory Nausea/Vomiting: Absent Respiratory: Satisfactory Pain: Controlled Complications: Absent Post Op Complications Complications None Follow Up Care/Instructions Patient Instructions None needed. Anesthesia/Patient Condition Patient Condition Patient is doing well, no complaints, stable vital signs, no apparent adverse anesthesia problems. No complications reported per nursing. D/C home per [facility] Criteria: Yes SOPHIE MAYEN CRNA Oct 09, 2019 15:54 POS
== END 2019-10-09 12:50 | disposition home or self-care (01) ==
LOC: SDC 07:45
PROVIDERS: ATTEND Orthopaedic Surgery
DX: S43.431A Superior glenoid labrum lesion of right shoulder, initial encounter (principal); M75.101 Unspecified rotator cuff tear or rupture of right shoulder, not specified as traumatic; E03.9 Hypothyroidism, unspecified; I10 Essential (primary) hypertension; I25.10 Atherosclerotic heart disease of native coronary artery without angina pectoris; K21.9 Gastro-esophageal reflux disease without esophagitis; G47.33 Obstructive sleep apnea (adult) (pediatric); E66.01 Morbid (severe) obesity due to excess calories; F17.220 Nicotine dependence, chewing tobacco, uncomplicated; Z68.41 Body mass index [BMI] 40.0-44.9, adult; Z90.89 Acquired absence of other organs; Z79.899 Other long term (current) drug therapy; Z79.82 Long term (current) use of aspirin; Z80.8 Family history of malignant neoplasm of other organs or systems